=== PATIENT | male | born 1995 | race Two or more races ===

== ENCOUNTER 2018-08-19 12:50 | Emergency (ER) | payer SELFPAY ==
[2018-08-19] MEDS ORDERED: LIDOCAINE 1% INJ (10 MG/ML) 10 ML MDV INJ ONE (13:31)
--- NOTE | 2018-08-19 13:33 | ER Document Report ---
ED Medical Screen (RME) - General Chief Complaint: Laceration Stated Complaint: HAND LACERATIONS Time Seen by Provider: 08/19/18 13:23 Mode of Arrival: Ambulatory Information source: Patient TRAVEL OUTSIDE OF THE [place] IN LAST 30 DAYS: No - HPI Patient complains to provider of: LACERATION Notes: 08/19/18 13:32 Patient here with laceration to the left and right hand. He was picking up sheet-metal and excellently lacerated his left fifth finger and right hand. Tetanus within the last 3 years. Bleeding controlled. Exam No distress, nontoxic, lungs clear and equal throughout. Laceration at the base of the right thumb no active bleeding, no obvious foreign body. Full flexion and extension. Normal cap refill distally. Laceration to the ulnar aspect of the left fifth finger. No foreign body, no active bleeding, normal cap refill distally. Plan Patient will require suture repair. An initial examination was made on the patient as part of the triage process, and it was determined a more comprehensive evaluation was necessary. Initial labs were ordered and patient was transferred to another provider in the ED who assumed care and finished evaluation and plan. - Related Data Allergies/Adverse Reactions: No Known Allergies Allergy (Unverified 08/19/18 12:51) Past Medical History Renal/ Medical History: Denies: Hx Peritoneal Dialysis Physical Exam - Vital signs Vitals: Temp Pulse Resp BP Pulse Ox 98.2 F 72 18 119/67 99 08/19/18 12:54 08/19/18 12:54 08/19/18 12:54 08/19/18 12:54 08/19/18 12:54 Course - Vital Signs Vital signs: Temp Pulse Resp BP Pulse Ox 98.2 F 72 18 119/67 99 08/19/18 12:54 08/19/18 12:54 08/19/18 12:54 08/19/18 12:54 08/19/18 12:54
[2018-08-19] MEDS ORDERED: LIDOCAINE 1% INJ-PF (10 MG/ML) 30 ML SDV INJ ONE (14:53)
--- NOTE | 2018-08-19 14:57 | ER Document Report ---
Addendum entered and electronically signed by KYRA OJEDA PA-C 08/19/18 16:55: Procedures - Laceration/Wound Repair left hand Time completed: 16:54 Wound length (cm): 3 Wound's Depth, Shape: Linear Laceration pre-procedure: Sterile PPE donned, Sterile drapes applied, Shur-Clens applied Anesthetic type: 1% Lidocaine Volume Anesthetic (mLs): 10 Wound explored: Contaminated Wound Repaired With: Sutures Suture Size/Type: 4:0, Ethilon Number of Sutures: 6 Layer Closure?: No Post-procedure wound care: Sterile dressing applied Post-procedure NV exam normal: Yes Complications: No Notes: 08/19/18 16:55 Tolerated well without complications Addendum entered and electronically signed by KYRA OJEDA PA-C 08/19/18 16:54: Procedures - Laceration/Wound Repair right palm Time completed: 16:52 Wound length (cm): 4 Wound's Depth, Shape: Linear Laceration pre-procedure: Sterile PPE donned, Sterile drapes applied, Shur-Clens applied Anesthetic type: 1% Lidocaine Volume Anesthetic (mLs): 10 Wound explored: Contaminated Irrigated w/ Saline (mLs): 100 Wound Repaired With: Sutures Suture Size/Type: 4:0, Ethilon Number of Sutures: 8 Layer Closure?: No Post-procedure wound care: Sterile dressing applied Post-procedure NV exam normal: Yes Complications: No Addendum entered and electronically signed by KYRA OJEDA PA-C 08/19/18 16:52: Physical Exam - Vital signs Vitals: Temp Pulse Resp BP Pulse Ox 98.2 F 72 18 119/67 99 08/19/18 12:54 08/19/18 12:54 08/19/18 12:54 08/19/18 12:54 08/19/18 12:54 - Notes Notes: As a correction to the previous measurements given for the lacerations on the 2 hands: The right palmar laceration over the thenar eminence 4 cm. The left hand at the base of the fifth finger measures 3 cm. Addendum entered and electronically signed by KYRA OJEDA PA-C 08/19/18 16:48: Procedures - Laceration/Wound Repair right palm Time completed: 16:47 Wound length (cm): 4 Wound's Depth, Shape: Linear Laceration pre-procedure: Sterile PPE donned, Sterile drapes applied, Shur-Clens applied Anesthetic type: 1% Lidocaine Volume Anesthetic (mLs): 10 Wound explored: Contaminated - dirty Irrigated w/ Saline (mLs): 100 - Scrubbed vigorously Wound Debrided: Minimal Wound Repaired With: Sutures Suture Size/Type: 4:0, Ethilon Number of Sutures: 8 Layer Closure?: No Post-procedure wound care: Sterile dressing applied Post-procedure NV exam normal: Yes Complications: No Notes: 08/19/18 16:48 Tolerated well with no complications Original Note: ED General - General Chief Complaint: Laceration Stated Complaint: HAND LACERATIONS Time Seen by Provider: 08/19/18 13:23 Mode of Arrival: Ambulatory Information source: Patient TRAVEL OUTSIDE OF THE [place] IN LAST 30 DAYS: No - HPI Patient complains to provider of: Right hand laceration and left hand laceration Onset: Just prior to arrival Severity: Mild Pain Level: 2 Associated symptoms: None Exacerbated by: Movement Relieved by: Denies Similar symptoms previously: No Recently seen / treated by doctor: No Notes: 22-year-old male coming in today with sheet-metal lacerations to the right palm into the left medial hand adjacent to the small finger. He relates that his tetanus shot is within 10 years. He gives me the absolute indication that there is no chance of any foreign body because this was a piece of sheet metal and it remained completely intact throughout. He is able to move all of his fingers and has normal sensation in his hands and in his fingers. - Related Data Allergies/Adverse Reactions: No Known Allergies Allergy (Unverified 08/19/18 12:51) Past Medical History - General Information source: Patient - Social History Smoking Status: Unknown if Ever Smoked Family History: Reviewed & Not Pertinent Patient has suicidal ideation: No Patient has homicidal ideation: No Renal/ Medical History: Denies: Hx Peritoneal Dialysis Review of Systems - Review of Systems Notes: Constitutional: No fevers. No chills. EENT: No eye redness. No eye pain. No ear pain. No sore throat. Cardiovascular: No chest pain. No palpitations. Respiratory: No cough. No shortness of breath. No respiratory distress. Gastrointestinal: No abdominal pain. No nausea, vomiting, or diarrhea. Genitourinary: Atraumatic. No lesions. No pain. No discharge. Musculoskeletal: Atraumatic. No swelling. No deformities. Lacerations present to the right and left hands Skin: No rash or lesions. Lymphatic: No swollen lymph nodes. Neurologic: No headache. No syncope. Psychiatric: No suicidal or homicidal ideation. Physical Exam - Vital signs Vitals: Temp Pulse Resp BP Pulse Ox 98.2 F 72 18 119/67 99 08/19/18 12:54 08/19/18 12:54 08/19/18 12:54 08/19/18 12:54 08/19/18 12:54 - Notes Notes: 3 cm laceration to the right palm over the thenar eminence. No active bleeding good range of motion of all digits. Good sensation. Neurovascularly intact. There is a 2 cm laceration to the base of the left small finger medial aspect. No active bleeding. Full range of motion of the digit. Normal sensation distally. Course - Vital Signs Vital signs: Temp Pulse Resp BP Pulse Ox 98.2 F 72 18 119/67 99 08/19/18 12:54 08/19/18 12:54 08/19/18 12:54 08/19/18 12:54 08/19/18 12:54 Discharge - Discharge Clinical Impression: Hand laceration Qualifiers: Encounter type: initial encounter Foreign body presence: without foreign body Laterality: unspecified laterality Qualified Code(s): S61.419A - Laceration without foreign body of unspecified hand, initial encounter Condition: Good Disposition: HOME, SELF-CARE Instructions: Antibiotic Ointment Protection ([facility]), Laceration Care ([facility]), Soap Cleansing ([facility]), Prophylactic Antibiotic ([facility]) Additional Instructions: Favor de volver aqui en 10 canchola para quitarle los puntos. Favor de volver aqui antes si se notan sintomas de infeccion incluyendo enrojecimiento, pus, calor, o calentura. [place] los antibioticos hasta que se acaben. Prescriptions: Cephalexin Monohydrate [Keflex 500 mg Capsule] 500 mg PO Q6H 7 Days #28 capsule Print Language: [place]
[2018-08-19] MEDS ORDERED: HYDROCODONE/ACETAMINOPHEN 5-325 MG (6 TAB/ER DISP) PO PRN (16:45)
[2018-08-19 17:17] VITALS: BP 129/77
== END 2018-08-19 17:16 | disposition home or self-care (01) ==
LOC: ER 12:50
DX: S61.411A Laceration without foreign body of right hand, initial encounter (principal); S61.412A Laceration without foreign body of left hand, initial encounter; W26.8XXA Contact with other sharp object(s), not elsewhere classified, initial encounter
CPT/HCPCS: 99282; J3490